=== PATIENT | male | born 1965 | race American Indian/Alaskan Native ===

== ENCOUNTER 2016-11-13 12:33 | Outpatient (CLI) | payer BC ==
[2016-11-13 13:08] LABS: Hematocrit 43.9 % (35.5-45.6); Hemoglobin 14.2 gm/dl (11.8-15.2); Mean Corpuscular HGB Conc 32 % (32-34); Mean Corpuscular Hemoglobin 26 pg (28-32); Mean Corpuscular Volume 81 fl (84-94); Platelet Count 205 K/mm3 (140-440); Red Blood Count 5.46 M/mm3 (3.65-5.03); Red Cell Distribution Width 16.1 % (13.2-15.2); White Blood Count 5.8 K/mm3 (4.5-11.0)
[2016-11-13 13:22] LABS: Alanine Aminotransferase 11 units/L (7-56); Albumin 4.5 g/dL (3.9-5); Albumin/Globulin Ratio 1.3 %; Alkaline Phosphatase 77 units/L (35-129); Anion Gap 18 mmol/L; BUN/Creatinine Ratio 15.55; Bilirubin,Total 0.4 mg/dL (0.1-1.2); Blood Urea Nitrogen 14 mg/dL (9-20); Calcium 9.1 mg/dL (8.4-10.2); Carbon Dioxide 24 mmol/L (22-30); Chloride 99.2 mmol/L (98-107); Cholesterol 176 mg/dL (50-199); Glucose 96 mg/dL (75-100); HDL Cholesterol 60 mg/dL (40-59); LDL Cholesterol,Direct 101 mg/dL (50-130); Potassium 3.8 mmol/L (3.6-5.0); Sodium 137 mmol/L (137-145); Total Protein 8.1 g/dL (6.3-8.2); Triglycerides 79 mg/dL (2-149)
== END 2016-11-13 12:34 | disposition home or self-care (01) ==
LOC: LAB 12:33
PROVIDERS: ATTEND Internal Medicine
DX: Z00.00 Encounter for general adult medical examination without abnormal findings (principal); E11.65 Type 2 diabetes mellitus with hyperglycemia; E78.00 Pure hypercholesterolemia, unspecified; E55.9 Vitamin D deficiency, unspecified; N40.1 Benign prostatic hyperplasia with lower urinary tract symptoms; R53.83 Other fatigue
CPT/HCPCS: 36415; 80053; 80061; 83036; 84153; 84443; 85027

== ENCOUNTER 2017-05-29 07:57 | Emergency (ER) | payer BC, OTHER ==
--- NOTE | 2017-05-29 08:35 | Emergency Department Report ---
ED General Adult HPI - General Chief complaint: Medical Clearance Stated complaint: NEEDLE STICK Time Seen by Provider: 05/29/17 08:24 Source: patient Mode of arrival: Ambulatory Limitations: No Limitations - History of Present Illness Initial comments: Needle stick -: This morning - Related Data Allergies Allergy/AdvReac Type Severity Reaction Status Date / Time No Known Allergies Allergy Verified 05/29/17 08:09 ED Review of Systems ROS: Stated complaint: NEEDLE STICK Other details as noted in HPI Constitutional: denies: fever ED Past Medical Hx - Past Medical History Previous Medical History?: Yes Hx Hypertension: Yes Hx Diabetes: Yes - Surgical History Past Surgical History?: No - Social History Smoking Status: Never Smoker Substance Use Type: None ED Physical Exam - General Limitations: No Limitations General appearance: alert - Extremities Exam Extremities exam: Present: other (left thumb needlestick no obvious bleeding) ED Course Vital Signs 05/29/17 08:09 Temperature 98.6 F Pulse Rate 74 Respiratory 18 Rate Blood Pressure 144/95 - Reevaluation(s) Reevaluation #1: 05/29/17 08:32 The other Patient rapid HIV test was negative. Patient does not want anti-HIV medications prophylaxis. Critical care attestation.: If time is entered above; I have spent that time in minutes in the direct care of this critically ill patient, excluding procedure time. ED Disposition Clinical Impression: Needle stick injury Disposition: DC-01 TO HOME OR SELFCARE Is pt being admited?: No Condition: Stable Referrals: PRIMARY CARE, [Primary Care Provider] - 3-5 Days
[2017-05-29 08:51] VITALS: BP 144/95
== END 2017-05-29 09:15 | disposition home or self-care (01) ==
LOC: ED 07:57
DX: S69.82XA Other specified injuries of left wrist, hand and finger(s), initial encounter (principal); I10 Essential (primary) hypertension; E11.9 Type 2 diabetes mellitus without complications; W46.0XXA Contact with hypodermic needle, initial encounter; Y93.89 Activity, other specified; Y92.89 Other specified places as the place of occurrence of the external cause; Y99.8 Other external cause status
CPT/HCPCS: 36415; 80074; 99283

== ENCOUNTER 2017-09-30 11:21 | Outpatient (CLI) | payer BC ==
[2017-09-30 12:01] LABS: Alanine Aminotransferase 10 units/L (7-56); Albumin 4.3 g/dL (3.9-5); Albumin/Globulin Ratio 1.1 %; Alkaline Phosphatase 68 units/L (35-129); Anion Gap 18 mmol/L; BUN/Creatinine Ratio 16; Blood Urea Nitrogen 14 mg/dL (9-20); Calcium 8.9 mg/dL (8.4-10.2); Carbon Dioxide 27 mmol/L (22-30); Chloride 99.2 mmol/L (98-107); Cholesterol 178 mg/dL (50-199); Glucose 105 mg/dL (75-100); HDL Cholesterol 55 mg/dL (40-59); LDL Cholesterol,Direct 105 mg/dL (50-130); Potassium 3.4 mmol/L (3.6-5.0); Sodium 141 mmol/L (137-145); Total Protein 8.1 g/dL (6.3-8.2); Triglycerides 92 mg/dL (2-149)
== END 2017-09-30 11:22 | disposition home or self-care (01) ==
LOC: LAB 11:21
PROVIDERS: ATTEND Internal Medicine
DX: E11.65 Type 2 diabetes mellitus with hyperglycemia (principal); E78.2 Mixed hyperlipidemia; R53.83 Other fatigue; I10 Essential (primary) hypertension
CPT/HCPCS: 36415; 80053; 80061; 83036

== ENCOUNTER 2018-03-01 05:38 | Emergency (ER) | payer BC ==
[2018-03-01] MEDS ORDERED: MOTRIN ONE (05:57)
[2018-03-01] MEDS ORDERED: FLEXERIL ONE (06:00)
[2018-03-01] MEDS ORDERED: NORCO 5/325 ONE (06:00)
[2018-03-01] MEDS ORDERED: NORCO 5/325 PO ONE (06:07)
[2018-03-01] MEDS ORDERED: FLEXERIL PO ONE (06:07)
[2018-03-01] MEDS ORDERED: MOTRIN PO ONE (06:07)
[2018-03-01] MEDS ORDERED: DECADRON ONE (06:49)
[2018-03-01] MEDS ORDERED: DILAUDID ONE (06:54)
[2018-03-01] MEDS ORDERED: ZOFRAN ODT ONE (06:54)
[2018-03-01] MEDS ORDERED: DILAUDID IM ONE (06:55)
[2018-03-01] MEDS ORDERED: DECADRON IM ONE (06:55)
[2018-03-01] MEDS ORDERED: ZOFRAN ODT PO ONE (06:55)
--- NOTE | 2018-03-01 06:55 | Emergency Department Report ---
ED Back Pain/Injury HPI - General Chief Complaint: Back Pain/Injury Stated Complaint: BACK ,RIGHT LEG PAIN Time Seen by Provider: 03/01/18 06:48 Source: patient, family Mode of arrival: Ambulatory Limitations: No Limitations - History of Present Illness Initial Comments: Patient is an employee here and started to have right lower back pain that radiated down his right leg. Patient had MRI 1.5 years ago and he is a patient of Dl Zavala M.D. who is orthopedic doctor. Patient said he has herniated disks in his lumbar area and also pinched nerve. He said he has constant lower back pain but he has been on his feet all night working in and he suddenly developed radiation of pain down his right leg. He said similar incident in the past. Pain is 8 out of 10. Patient to his right lower extremity feels numb and its constant. Denies any new injury. Denies any urinary burning frequency or urgency. Denies any abdominal pain or nausea or vomiting. The pressure is 164/102 and patient has a history of high blood pressure and diabetes. He also has history of chronic lower back pain with sciatica and surgical history of left shoulder and left knee surgery. Patient said he usually takes Ultram which helps. Patient is at work while flareup. His pain is worse with sitting. She denies any loss of bowel or bladder function. MD Complaint: back pain -: This morning Similar Symptoms Previously: Yes Place: work Radiation: buttocks, right leg Severity: severe Severity scale (0 -10): 8 Quality: aching (throbbing ), tingling Consistency: constant Improves With: immobilization Worsens With: sitting upright, walking Context: other (flare up at work) Associated Symptoms: difficulty walking. denies: confusion, weakness, chest pain, numbness, cough, difficulty urinating, diaphoresis, incontinence, fever/ chills, constipation, headaches, abdominal pain, loss of appetite, malaise, nausea/vomiting, rash, seizure, shortness of breath, syncope Treatments Prior to Arrival: other (none) - Related Data Previous Rx's Medication Instructions Recorded Last Taken Type Metaxalone [Skelaxin] 800 mg PO TID PRN #12 tablet 03/01/18 Unknown Rx predniSONE [Deltasone] 50 mg PO QDAY 3 Days #3 tab 03/01/18 Unknown Rx traMADol [Ultram 50 MG tab] 50 mg PO Q6HR PRN #20 tablet 03/01/18 Unknown Rx Allergies Allergy/AdvReac Type Severity Reaction Status Date / Time No Known Allergies Allergy Verified 05/29/17 08:09 ED Review of Systems ROS: Stated complaint: BACK ,RIGHT LEG PAIN Other details as noted in HPI Comment: All other systems reviewed and negative Constitutional: no symptoms reported Respiratory: no symptoms reported Cardiovascular: denies: chest pain, palpitations, dyspnea on exertion, edema, syncope, paroxysmal nocturnal dyspnea Gastrointestinal: denies: abdominal pain, nausea, vomiting Genitourinary: denies: dysuria, hematuria Musculoskeletal: back pain, arthralgia. denies: as per HPI, joint swelling, myalgia Skin: denies: rash Neurological: numbness, paresthesias, abnormal gait. denies: headache, weakness , confusion, vertigo ED Past Medical Hx - Past Medical History Medical history: diabetes, hypertension sciatic. Herniated disc and chronic back pain Surgical history: other (shoulder and left knee pain) Psychiatric history: no pertinent history Family history: no significant family history - Social History Smoking Status: Never Smoker Alcohol use: none Drug use: none ED Back Pain Physical Exam - Exam General: Vital signs noted. No distress. Alert and acting appropriately. This is a 52-year-old male well-nourished well-developed there is to be in mild distress from back pain Back/Abdomen: Yes Perilumbar Tenderness (spasm bilaterally), Yes Sacroiliac Tenderness (tender to palpate), Yes Straight Leg Raise Pain (positive right straight leg raise), No Abdominal Tenderness (nontender to palpate in all quadrants.), No Perithoracic Tenderness (nontender to palpate), No Flank Tenderness Neuro: Yes Normal Sensation, Yes Normal DTR's, Yes Normal Gait, No Motor Weakness ED Course Vital Signs 03/01/18 05:49 Temperature 98.3 F Pulse Rate 70 Respiratory 18 Rate Blood Pressure 164/102 O2 Sat by Pulse 98 Oximetry Vital Signs 03/01/18 03/01/18 05:49 07:04 Temperature 98.3 F Pulse Rate 70 68 Respiratory 18 17 Rate Blood Pressure 164/102 Blood Pressure 160/89 [Left] O2 Sat by Pulse 98 100 Oximetry - Reevaluation(s) Reevaluation #1: 03/01/18 07:30 Patient given [place] 5/325 mg 2 tablets and Flexeril 10 mg by mouth, Motrin 800 mg by mouth which did not relieve his pain. Reevaluation #2: 03/01/18 07:16 Patient given Dilaudid 1 mg IM, Zofran 8 mg ODT and Decadron 10 mg IM. He said his pain is better and blood pressure is better. ED Medical Decision Making - Medical Decision Making ED course: She reports acute flare up of chronic back pain while at work. Patient with lumbar radiculopathy with radiation down into right leg. He has spasms to his lower back. Patient given local photosensitive 5.325 mg 2 tablets by mouth and Motrin 800 mg by mouth along with Flexeril 10 mg by mouth in the emergency room which did not relieve his pain therefore he was given additional Dilaudid 1 mg IM, Decadron 10 mg IM, and Zofran 8 mg ODT which relieved his pain significantly. Patient is neurologically intact except abnormal gait due to back pain. Patient does have orthopedic doctor and I discussed with him that he needs to call and schedule appointment for follow-up visit. He voiced understanding. Patient is not having any bladder or bowel function abnormality. Discharge home with prescription for tramadol, prednisone 3 days and Skelaxin. Critical care attestation.: If time is entered above; I have spent that time in minutes in the direct care of this critically ill patient, excluding procedure time. ED Disposition Clinical Impression: Acute exacerbation of chronic low back pain, Lumbar radiculopathy, right, Elevated blood pressure reading with diagnosis of hypertension Disposition: DC-01 TO HOME OR SELFCARE Is pt being admited?: No Does the pt Need Aspirin: No Condition: Stable Instructions: Hypertension (ED), Back Pain (ED), Lumbar Radiculopathy (ED), Core Strengthening Exercises (GEN) Additional Instructions: Please do not drive or operate heavy machinery while taking Skelaxin and Ultram as this medication causes drowsiness Follow-up with your orthopedic doctor tomorrow Prescriptions: Metaxalone [Skelaxin] 800 mg PO TID PRN #12 tablet PRN Reason: spasm in Back predniSONE [Deltasone] 50 mg PO QDAY 3 Days #3 tab traMADol [Ultram 50 MG tab] 50 mg PO Q6HR PRN #20 tablet PRN Reason: Pain Referrals: ELLEN SOLIS MD [Primary Care Provider] - 03/03/18 DL ZAVALA MD [Staff Physician] - 03/02/18 Forms: Work/School Release Form(ED)
[2018-03-01 07:05] VITALS: BP 160/89
== END 2018-03-01 07:43 | disposition home or self-care (01) ==
LOC: ED 05:38
DX: M54.16 Radiculopathy, lumbar region (principal); M54.5 Low back pain; G89.29 Other chronic pain; I10 Essential (primary) hypertension; E11.9 Type 2 diabetes mellitus without complications
CPT/HCPCS: 96372; 99282; J1100; J1170; Q0162

== ENCOUNTER 2018-03-10 12:39 | Outpatient (CLI) | payer BC ==
--- NOTE | 2018-03-10 16:02 | Cat Scan Report ---
FINAL REPORT PROCEDURE: CT LOWER EXTREMITY RT WO CON TECHNIQUE: Computerized axial tomography of the LEFT hip was performed without contrast. HISTORY: RIGHT HIP PAIN COMPARISON: No prior studies are available for comparison. FINDINGS: There is partial sacralization of the right side the L5 vertebra, pseudo articulation which can be a cause of pain. There is mild arthritic change visualized in the superior aspect of the left SI joint. No fractures are identified. The small synovial herniation pit appears to be visualized in the superior lateral aspect of the right femoral neck. Bone island appears to be present in the inferior medial aspect of the right humeral head. Small subchondral cyst visualized in the superior lateral aspect of the acetabular roof on the right. Minimal marginal osteophytic spurring seen in the right and left hip joints consistent with mild osteoarthritis. Articular surfaces appear smooth. No acute fractures are seen. No evidence of avascular necrosis. Surrounding musculature is unremarkable. There is nonspecific diffuse prostate enlargement. Urinary bladder is unremarkable. Visualized portions of the appendix in the right lower quadrant are unremarkable. Minimal umbilical hernia containing adipose tissue is visualized. No herniated loops of bowel are seen. There is no ascites. IMPRESSION: Mild osteoarthritic changes seen in both hips., Small marginal osteophytic spurs are present. There is also a small subchondral cyst in the superior lateral aspect of the roof of the right acetabulum. Small synovial herniation pit seen in the right femoral neck adjacent to the femoral head. Partial sacralization right side of the L5 vertebral body as described which can be a cause of pain. Mild arthritic change seen in the left SI joint. No acute fractures or dislocation identified. There is nonspecific diffuse prostate enlargement.
== END 2018-03-10 12:40 | disposition home or self-care (01) ==
LOC: CT 12:39
PROVIDERS: ATTEND Internal Medicine
DX: M16.11 Unilateral primary osteoarthritis, right hip (principal); M43.27 Fusion of spine, lumbosacral region; M25.851 Other specified joint disorders, right hip; M76.9 Unspecified enthesopathy, lower limb, excluding foot; N40.0 Benign prostatic hyperplasia without lower urinary tract symptoms; K42.9 Umbilical hernia without obstruction or gangrene; I10 Essential (primary) hypertension; E11.9 Type 2 diabetes mellitus without complications

== ENCOUNTER 2018-07-21 10:54 | Outpatient (CLI) | payer BC ==
[2018-07-21 11:15] LABS: Hematocrit 44.9 % (35.5-45.6); Hemoglobin 14.7 gm/dl (11.8-15.2); Mean Corpuscular HGB Conc 33 % (32-34); Mean Corpuscular Hemoglobin 27 pg (28-32); Mean Corpuscular Volume 83 fl (84-94); Platelet Count 201 K/mm3 (140-440); Red Blood Count 5.43 M/mm3 (3.65-5.03); Red Cell Distribution Width 15.8 % (13.2-15.2)
[2018-07-21 11:45] LABS: Alanine Aminotransferase 9 units/L (7-56); Albumin 4.4 g/dL (3.9-5); BUN/Creatinine Ratio 13; Blood Urea Nitrogen 13 mg/dL (9-20); Calcium 9.2 mg/dL (8.4-10.2); Chol/HDL Ratio 3.28 %; HDL Cholesterol 53 mg/dL (40-59); Hemolysis Index 7; LDL Cholesterol,Direct 116 mg/dL (50-130)
== END 2018-07-21 10:55 | disposition home or self-care (01) ==
LOC: LAB 10:54
PROVIDERS: ATTEND Internal Medicine
DX: E11.65 Type 2 diabetes mellitus with hyperglycemia (principal); R53.83 Other fatigue; E78.2 Mixed hyperlipidemia; E55.9 Vitamin D deficiency, unspecified; N41.0 Acute prostatitis; I10 Essential (primary) hypertension
CPT/HCPCS: 36415; 80053; 80061; 82306; 83036; 84153; 84443; 85027

== ENCOUNTER 2019-03-09 09:50 | Outpatient (CLI) | payer BC ==
[2019-03-09 10:19] LABS: Hematocrit 45.6 % (35.5-45.6); Hemoglobin 15.1 gm/dl (11.8-15.2); Mean Corpuscular HGB Conc 33 % (32-34); Mean Corpuscular Volume 82 fl (84-94); Platelet Count 235 K/mm3 (140-440); Red Blood Count 5.58 M/mm3 (3.65-5.03); Red Cell Distribution Width 15.8 % (13.2-15.2)
[2019-03-09 10:35] LABS: Alanine Aminotransferase 10 units/L (7-56); Albumin 4.2 g/dL (3.9-5); BUN/Creatinine Ratio 11; Blood Urea Nitrogen 11 mg/dL (9-20); Calcium 8.8 mg/dL (8.4-10.2); Chol/HDL Ratio 2.96 %; HDL Cholesterol 56 mg/dL (40-59); Hemolysis Index 5; LDL Cholesterol,Direct 113 mg/dL (50-130)
== END 2019-03-09 09:51 | disposition home or self-care (01) ==
LOC: LAB 09:50
PROVIDERS: ATTEND Internal Medicine
DX: E11.65 Type 2 diabetes mellitus with hyperglycemia (principal); N40.1 Benign prostatic hyperplasia with lower urinary tract symptoms; R53.83 Other fatigue; E78.2 Mixed hyperlipidemia; I10 Essential (primary) hypertension
CPT/HCPCS: 36415; 80053; 80061; 83036; 84153; 84443; 85027

== ENCOUNTER 2019-09-27 09:40 | Outpatient (CLI) | payer BC ==
[2019-09-27 10:44] LABS: Hematocrit 42.6 % (35.5-45.6); Hemoglobin 13.8 gm/dl (11.8-15.2); Mean Corpuscular HGB Conc 32 % (32-34); Mean Corpuscular Volume 82 fl (84-94); Platelet Count 216 K/mm3 (140-440); Red Blood Count 5.23 M/mm3 (3.65-5.03); Red Cell Distribution Width 16.5 % (13.2-15.2)
[2019-09-27 11:09] LABS: Alanine Aminotransferase 13 units/L (7-56); Albumin 4.4 g/dL (3.9-5); BUN/Creatinine Ratio 12; Blood Urea Nitrogen 13 mg/dL (9-20); Calcium 9.2 mg/dL (8.4-10.2); Hemolysis Index 29
[2019-09-27 12:33] LABS: Microalbumin/Creatinine Ratio 6.1 ug/mg
== END 2019-09-27 09:41 | disposition home or self-care (01) ==
LOC: LAB 09:40
PROVIDERS: ATTEND Internal Medicine
DX: R53.83 Other fatigue (principal); E11.65 Type 2 diabetes mellitus with hyperglycemia; R80.0 Isolated proteinuria
CPT/HCPCS: 36415; 80053; 82043; 82164; 83036; 84443; 85027

== ENCOUNTER 2019-10-28 18:22 | Emergency (ER) | payer BC ==
--- NOTE | 2019-10-28 19:13 | Event Note ---
ED Screening Note Date of service: 10/28/19 Time: 19:10 ED Screening Note: Pt complains of chest pain, cough, and wheezing x 4 days +brown sputum ekg This initial assessment/diagnostic orders/clinical plan/treatment(s) is/are subject to change based on patients health status, clinical progression and re- assessment by fellow clinical providers in the ED. Further treatment and workup at subsequent clinical providers discretion. Patient/guardian urged not to elope from the ED as their condition may be serious if not clinically assessed and managed. Initial orders include: ekg CXR labs
--- NOTE | 2019-10-28 19:48 | XRay Report ---
CHEST 2 VIEWS INDICATION / CLINICAL INFORMATION: MAIN: cough, wheezing X4 DAYS. FINDINGS: Comparison radiograph from 06/20/2008. Cardiac mediastinal silhouette within normal limits. The lungs are clear. No pleural fluid or pneumothorax. No significant change. Signer Name: Miguel Macdonald MD Signed: 10/28/2019 7:44 PM Workstation Name: [id number]
[2019-10-28 20:16] LABS: Eosinophils % (Auto) 1.3 % (0.0-4.3); Hematocrit 41.8 % (35.5-45.6); Hemoglobin 13.9 gm/dl (11.8-15.2); Lymphocytes % (Auto) 29.7 % (13.4-35.0); Mean Corpuscular HGB Conc 33 % (32-34); Mean Corpuscular Volume 82 fl (84-94); Monocytes % (Auto) 11.7 % (0.0-7.3); Platelet Count 213 K/mm3 (140-440); Red Blood Count 5.11 M/mm3 (3.65-5.03); Red Cell Distribution Width 16.2 % (13.2-15.2)
[2019-10-28 20:17] LABS: Basophils % (Auto) 0.8 % (0.0-1.8); Eosinophils # (Auto) 0.1 K/mm3 (0.0-0.4); Lymphocytes # (Auto) 2.3 K/mm3 (1.2-5.4); Monocytes # (Auto) 0.9 K/mm3 (0.0-0.8)
[2019-10-28 20:18] LABS: Basophils # (Auto) 0.1 K/mm3 (0.0-0.1)
[2019-10-28] MEDS ORDERED: IPRATROPIUM/ALBUTEROL SULFATE 3 ML AMPUL.NEB IH ONE (20:30)
[2019-10-28 20:31] LABS: Alanine Aminotransferase 14 units/L (7-56); Albumin 4.1 g/dL (3.9-5); BUN/Creatinine Ratio 15; Blood Urea Nitrogen 16 mg/dL (9-20); Calcium 9.3 mg/dL (8.4-10.2); Hemolysis Index 2
[2019-10-28] MEDS ORDERED: ASPIRIN 325 MG TAB PO ONE (20:31)
[2019-10-28] MEDS ORDERED: methylPREDNISolone Sod Succinate 125 MG/2 ML INJ IV ONE (20:31)
[2019-10-28] MEDS ORDERED: SODIUM CHLORIDE 0.9% 1000 ML 1,000 ML IV ONE (20:32)
[2019-10-28] MEDS ORDERED: AMOXICILLIN/K CLAV 875/125MG TAB PO ONE (22:36)
--- NOTE | 2019-10-29 00:11 | Emergency Department Report ---
- General Chief Complaint: Chest Pain Stated Complaint: FLU SX/CHEST PAIN Time Seen by Provider: 10/28/19 19:10 Source: patient Mode of arrival: Ambulatory Limitations: No Limitations - History of Present Illness Initial Comments: Patient is a 54 yo AA male with a h/o HTN and NIDDM who presents to the ED with c/o acute onset persistent nasal and sinus congestion, frontal sinus pressure and headache, sore throat, pleuritic chest wall pain with intermittent wheezing, cough with thick yellowish-green phlegm, diffuse body aches and pains and frontal headache for the last 5 days. Patient also complains of subjective fever and chills with lack of appetite. Patient denies dizziness, syncope, chest pain, shortness of breath, abdominal pain, nausea, vomiting or diarrhea. MD Complaint: fever, cough, sore throat, rhinorrhea, nasal congestion, sinus pain, other (pleuritic chest wall pain; wheezing) -: Sudden, days(s) (5) Severity scale (0 -10): 8 Quality: sharp, aching Consistency: constant Improves With: nothing Worsens With: nothing Context: sick contacts Associated Symptoms: denies other symptoms, fever, chills, myalgias, headache, rhinorrhea, nasal congestion, sore throat, cough, chest pain (pleuritic), shortness of breath. denies: diaphoresis, stiff neck, abdominal pain, nausea, vomiting, diarrhea, dysuria, rash, confusion, right sweats, epistaxis, hoarseness, ear pain, other Treatments Prior to Arrival: Acetaminophen - Related Data Previous Rx's Medication Instructions Recorded Last Taken Type Metaxalone [Skelaxin] 800 mg PO TID PRN #12 tablet 03/01/18 Unknown Rx predniSONE [Deltasone] 50 mg PO QDAY 3 Days #3 tab 03/01/18 Unknown Rx traMADoL [Ultram 50 MG tab] 50 mg PO Q6HR PRN #20 tablet 03/01/18 Unknown Rx ALBUTEROL Inhaler (OR & NICU) 1 - 2 puff IH Q6H PRN #1 inh 10/29/19 Unknown Rx [ProAir HFA Inhaler] Amoxicillin/Potassium Clav 1 each PO Q12H #20 tablet 10/29/19 Unknown Rx [Augmentin 875-125 Tablet] Benzonatate [Tessalon Perles] 100 mg PO Q8HR #30 capsule 10/29/19 Unknown Rx Ibuprofen [Motrin] 800 mg PO Q8HR PRN #24 tablet 10/29/19 Unknown Rx methylPREDNISolone [Medrol 4MG 4 mg PO DAILY #21 tab.ds.pk 10/29/19 Unknown Rx DOSEPAK (21 tabs)] Allergies Allergy/AdvReac Type Severity Reaction Status Date / Time No Known Allergies Allergy Verified 05/29/17 08:09 ED Review of Systems ROS: Stated complaint: FLU SX/CHEST PAIN Other details as noted in HPI Constitutional: chills, fever, malaise Eyes: denies: eye pain, eye discharge, vision change ENT: throat pain, congestion. denies: ear pain Respiratory: cough, shortness of breath, wheezing Cardiovascular: chest pain (pleuritic). denies: palpitations Endocrine: no symptoms reported Gastrointestinal: denies: abdominal pain, nausea, vomiting, diarrhea Genitourinary: denies: urgency, dysuria Musculoskeletal: arthralgia, myalgia. denies: back pain, joint swelling Skin: denies: rash, lesions Neurological: headache. denies: weakness, paresthesias Psychiatric: denies: anxiety, depression Hematological/Lymphatic: denies: easy bleeding, easy bruising ED Past Medical Hx - Past Medical History Previous Medical History?: Yes Hx Hypertension: Yes Hx Diabetes: Yes Additional medical history: sciatic. Herniated disc and chronic back pain - Surgical History Past Surgical History?: Yes Additional Surgical History: left shoulder. left knee - Social History Smoking Status: Never Smoker Substance Use Type: None - Medications Home Medications: Home Medications Medication Instructions Recorded Confirmed Last Taken Type Metaxalone [Skelaxin] 800 mg PO TID PRN #12 tablet 03/01/18 Unknown Rx predniSONE [Deltasone] 50 mg PO QDAY 3 Days #3 tab 03/01/18 Unknown Rx traMADoL [Ultram 50 MG tab] 50 mg PO Q6HR PRN #20 tablet 03/01/18 Unknown Rx ALBUTEROL Inhaler (OR & NICU) 1 - 2 puff IH Q6H PRN #1 inh 10/29/19 Unknown Rx [ProAir HFA Inhaler] Amoxicillin/Potassium Clav 1 each PO Q12H #20 tablet 10/29/19 Unknown Rx [Augmentin 875-125 Tablet] Benzonatate [Tessalon Perles] 100 mg PO Q8HR #30 capsule 10/29/19 Unknown Rx Ibuprofen [Motrin] 800 mg PO Q8HR PRN #24 tablet 10/29/19 Unknown Rx methylPREDNISolone [Medrol 4MG 4 mg PO DAILY #21 tab.ds.pk 10/29/19 Unknown Rx DOSEPAK (21 tabs)] ED Physical Exam - General Limitations: No Limitations General appearance: alert, in no apparent distress - Head Head exam: Present: atraumatic, normocephalic, normal inspection - Eye Eye exam: Present: normal appearance, PERRL, EOMI Pupils: Present: normal accommodation - ENT ENT exam: Present: mucous membranes moist, TM's normal bilaterally, normal external ear exam, other (grossly congested nasal passages, erythematous oropharynx, frontal sinus tenderness) - Neck Neck exam: Present: normal inspection, full ROM, lymphadenopathy. Absent: tenderness - Respiratory Respiratory exam: Present: normal lung sounds bilaterally, wheezes (mildly diffuse coarse wheezes throughout), chest wall tenderness. Absent: respiratory distress, accessory muscle use, decreased breath sounds, prolonged expiratory - Cardiovascular Cardiovascular Exam: Present: normal rhythm, tachycardia, normal heart sounds. Absent: systolic murmur, diastolic murmur, rubs, gallop - GI/Abdominal GI/Abdominal exam: Present: soft, normal bowel sounds. Absent: tenderness, guarding, rebound, hyperactive bowel sounds, hypoactive bowel sounds, orga nomegaly - Extremities Exam Extremities exam: Present: normal inspection, full ROM, normal capillary refill - Back Exam Back exam: Present: normal inspection, full ROM. Absent: tenderness, CVA tenderness (R), CVA tenderness (L), muscle spasm, paraspinal tenderness - Neurological Exam Neurological exam: Present: alert, oriented X3, CN II-XII intact, normal gait, reflexes normal - Psychiatric Psychiatric exam: Present: normal affect, normal mood - Skin Skin exam: Present: warm, dry, intact, normal color. Absent: rash ED Course Vital Signs 10/28/19 10/28/19 19:10 21:18 Temperature 98.3 F Pulse Rate 106 H Pulse Rate [ 92 H Bilateral] Respiratory 20 Rate Respiratory 22 Rate [Bilateral ] Blood Pressure 159/100 O2 Sat by Pulse 96 Oximetry ED Medical Decision Making - Lab Data Result diagrams: 10/28/19 19:42 10/28/19 19:42 - Radiology Data Radiology results: report reviewed, image reviewed Chest x-ray shows no acute cardiopulmonary abnormalities or pneumonitis. - Medical Decision Making This is a 54-year-old male who presented to the ED with acute onset persistent diffuse body aches and pain, nasal and sinus congestion, frontal sinus pressure and headache, sore throat, persistent cough with yellowish green mucus, pleuritic chest wall pain for the last 5 days. In the ED, patient is alert and oriented 3 and is not in distress. EKG shows normal sinus rhythm with ventricular rate of [address] or T-wave abnormalities. Chest x-ray shows no acute cardio pulmonary abnormalities or pneumonitis. Lab test results were reviewed and are nonactionable including initial and repeat troponin levels. Patient was treated in the ED with DuoNeb, Solu-Medrol, aspirin and and Augmentin. Patient also received normal saline 1 L IV bolus 1. On reevaluat ion, patient felt better, wheezing resolved as well as body aches and pains. Patient was discharged home on medications and was advised to return plenty of fluids and follow-up with the primary care physician in 7-10 days for reevaluation or return to the ED immediately if symptoms get worse. - Differential Diagnosis pneumonia; sinusitis; URI; Strep pharyngitis; Flu; ACS Critical care attestation.: If time is entered above; I have spent that time in minutes in the direct care of this critically ill patient, excluding procedure time. ED Disposition Clinical Impression: Acute non-recurrent frontal sinusitis, Acute upper respiratory infection Acute bronchitis Qualifiers: Bronchitis organism: other organism Qualified Code(s): J20.8 - Acute bronchitis due to other specified organisms Disposition: DC-01 TO HOME OR SELFCARE Is pt being admited?: No Does the pt Need Aspirin: No Condition: Stable Instructions: Acute Bronchitis (ED), Acute Bacterial Rhinosinusitis (ED), Upper Respiratory Infection (ED) Additional Instructions: Take medication with food, drink plenty of fluids and follow-up with your primary care physician in 7-10 days for reevaluation. Prescriptions: Amoxicillin/Potassium Clav [Augmentin 875-125 Tablet] 1 each PO Q12H #20 tablet methylPREDNISolone [Medrol 4MG DOSEPAK (21 tabs)] 4 mg PO DAILY #21 tab.ds.pk Ibuprofen [Motrin] 800 mg PO Q8HR PRN #24 tablet PRN Reason: Pain , Severe (7-10) ALBUTEROL Inhaler (OR & NICU) [ProAir HFA Inhaler] 1 - 2 puff IH Q6H PRN #1 inh PRN Reason: Dyspnea Benzonatate [Tessalon Perles] 100 mg PO Q8HR #30 capsule Referrals: MJ KAYE MD [Staff Physician] - 7-10 days Forms: Work/School Release Form(ED) Time of Disposition: 00:14 Print Language: WELSH
[2019-10-29 01:40] VITALS: BP 153/95
== END 2019-10-29 00:44 | disposition home or self-care (01) ==
LOC: ED 18:22
DX: J06.9 Acute upper respiratory infection, unspecified (principal); J20.9 Acute bronchitis, unspecified; J01.10 Acute frontal sinusitis, unspecified; I10 Essential (primary) hypertension; E11.9 Type 2 diabetes mellitus without complications; Z98.890 Other specified postprocedural states; Z79.899 Other long term (current) drug therapy
CPT/HCPCS: 36415; 71046; 80053; 84484; 85025; 87116; 87400; 87430; 93005; 93010; 94640; 96374; 99284; J2930; J7030; 94644

== ENCOUNTER 2020-01-28 10:43 | Emergency (ER) | payer BC ==
--- NOTE | 2020-01-28 11:29 | XRay Report ---
CHEST 2 VIEWS INDICATION / CLINICAL INFORMATION: Chest congestion, dry throat/cough, recent travel. COMPARISON: 2 views of the chest from 10/28/2019. FINDINGS: SUPPORT DEVICES: None. HEART / MEDIASTINUM: No significant abnormality. LUNGS / PLEURA: No significant pulmonary or pleural abnormality. No pneumothorax. ADDITIONAL FINDINGS: No significant additional findings. IMPRESSION: 1. No acute abnormality of the chest. Signer Name: Wellington Martinez MD Signed: 01/28/2020 11:24 AM Workstation Name: [id number]
[2020-01-28] MEDS ORDERED: HYDROcodone/ACETAMINOPHEN 5-325 MG TAB PO ONE (11:49)
[2020-01-28] MEDS ORDERED: ASPIRIN 325 MG TAB PO ONE (11:49)
[2020-01-28 12:12] LABS: Basophils % (Auto) 0.7 % (0.0-1.8); Eosinophils # (Auto) 0.1 K/mm3 (0.0-0.4); Eosinophils % (Auto) 1.6 % (0.0-4.3); Hematocrit 41.6 % (35.5-45.6); Hemoglobin 13.9 gm/dl (11.8-15.2); Lymphocytes # (Auto) 2.5 K/mm3 (1.2-5.4); Lymphocytes % (Auto) 48.3 % (13.4-35.0); Mean Corpuscular HGB Conc 33 % (32-34); Mean Corpuscular Volume 80 fl (84-94); Monocytes # (Auto) 0.5 K/mm3 (0.0-0.8); Monocytes % (Auto) 9.8 % (0.0-7.3); Platelet Count 234 K/mm3 (140-440); Red Blood Count 5.19 M/mm3 (3.65-5.03); Red Cell Distribution Width 16.1 % (13.2-15.2)
--- NOTE | 2020-01-28 12:23 | Emergency Department Report ---
ED General Adult HPI - General Chief complaint: Upper Respiratory Infection Stated complaint: SOB/BOTH SHOULDERS HURT/LOWER BACK PAIN Time Seen by Provider: 01/28/20 11:12 Source: patient Mode of arrival: Ambulatory Limitations: No Limitations - History of Present Illness Initial comments: Patient is a 54-year-old male who presents emergency room with complaints of chest pain for 1 week. He has associated difficulty breathing, pleuritic chest pain, dry cough, occasionally notices bilateral lower extremity swelling. He states that when he wakes up in the morning his swelling has resolved but throughout the day with walking around the swelling increases. He states that he has recently traveled. He states that he went to [facility] from December 31-. He denies any fever, nausea, vomiting, diarrhea. He has a past medical history of hypertension and is on valsartan and amlodipine. He also has a history of diabetes and takes metformin. He states he last had a stress test approximately 15 years ago which she reports was normal. He denies any allergies to medications. He states he is a non-smoker and states that he rarely drinks. Severity scale (0 -10): 8 - Related Data Previous Rx's Medication Instructions Recorded Last Taken Type Metaxalone [Skelaxin] 800 mg PO TID PRN #12 tablet 03/01/18 Unknown Rx predniSONE [Deltasone] 50 mg PO QDAY 3 Days #3 tab 03/01/18 Unknown Rx traMADoL [Ultram 50 MG tab] 50 mg PO Q6HR PRN #20 tablet 03/01/18 Unknown Rx Albuterol INH(or & Nicu Only) 1 - 2 puff IH Q6H PRN #1 inh 10/29/19 Unknown Rx [ProAir HFA Inhaler] Amoxicillin/Potassium Clav 1 each PO Q12H #20 tablet 10/29/19 Unknown Rx [Augmentin 875-125 Tablet] Benzonatate [Tessalon Perles] 100 mg PO Q8HR #30 capsule 10/29/19 Unknown Rx Ibuprofen [Motrin] 800 mg PO Q8HR PRN #24 tablet 10/29/19 Unknown Rx methylPREDNISolone [Medrol 4MG 4 mg PO DAILY #21 tab.ds.pk 10/29/19 Unknown Rx DOSEPAK (21 tabs)] Albuterol Sulfate [Proventil Hfa] 6.7 gm IH TID PRN #1 hfa.aer.ad 01/28/20 Unknown Rx Azithromycin [Zithromax TAB] 250 mg PO QDAY 5 Days #6 tablet 01/28/20 Unknown Rx Benzonatate [Tessalon Perles] 100 mg PO Q8HR PRN #14 capsule 01/28/20 Unknown Rx Cyclobenzaprine [Flexeril] 10 mg PO Q8HR PRN #14 tablet 01/28/20 Unknown Rx Naproxen [EC-Naprosyn] 500 mg PO BID PRN #14 tablet.dr 01/28/20 Unknown Rx Allergies Allergy/AdvReac Type Severity Reaction Status Date / Time No Known Allergies Allergy Verified 05/29/17 08:09 ED Review of Systems ROS: Stated complaint: SOB/BOTH SHOULDERS HURT/LOWER BACK PAIN Other details as noted in HPI Comment: All other systems reviewed and negative ED Past Medical Hx - Past Medical History Previous Medical History?: Yes Hx Hypertension: Yes Hx Diabetes: Yes Additional medical history: sciatic. Herniated disc and chronic back pain - Surgical History Past Surgical History?: Yes Additional Surgical History: left shoulder. left knee - Social History Smoking Status: Never Smoker Substance Use Type: None - Medications Home Medications: Home Medications Medication Instructions Recorded Confirmed Last Taken Type Metaxalone [Skelaxin] 800 mg PO TID PRN #12 tablet 03/01/18 Unknown Rx predniSONE [Deltasone] 50 mg PO QDAY 3 Days #3 tab 03/01/18 Unknown Rx traMADoL [Ultram 50 MG tab] 50 mg PO Q6HR PRN #20 tablet 03/01/18 Unknown Rx Albuterol INH(or & Nicu Only) 1 - 2 puff IH Q6H PRN #1 inh 10/29/19 Unknown Rx [ProAir HFA Inhaler] Amoxicillin/Potassium Clav 1 each PO Q12H #20 tablet 10/29/19 Unknown Rx [Augmentin 875-125 Tablet] Benzonatate [Tessalon Perles] 100 mg PO Q8HR #30 capsule 10/29/19 Unknown Rx Ibuprofen [Motrin] 800 mg PO Q8HR PRN #24 tablet 10/29/19 Unknown Rx methylPREDNISolone [Medrol 4MG 4 mg PO DAILY #21 tab.ds.pk 10/29/19 Unknown Rx DOSEPAK (21 tabs)] Albuterol Sulfate [Proventil Hfa] 6.7 gm IH TID PRN #1 hfa.aer.ad 01/28/20 Unknown Rx Azithromycin [Zithromax TAB] 250 mg PO QDAY 5 Days #6 tablet 01/28/20 Unknown Rx Benzonatate [Tessalon Perles] 100 mg PO Q8HR PRN #14 capsule 01/28/20 Unknown Rx Cyclobenzaprine [Flexeril] 10 mg PO Q8HR PRN #14 tablet 01/28/20 Unknown Rx Naproxen [EC-Naprosyn] 500 mg PO BID PRN #14 tablet.dr 01/28/20 Unknown Rx ED Physical Exam - General Limitations: No Limitations General appearance: alert, in no apparent distress - Head Head exam: Present: atraumatic, normocephalic - Eye Eye exam: Present: normal appearance - ENT ENT exam: Present: mucous membranes moist - Respiratory Respiratory exam: Present: normal lung sounds bilaterally. Absent: respiratory distress, wheezes, rales, rhonchi, stridor, chest wall tenderness, accessory muscle use, decreased breath sounds, prolonged expiratory - Cardiovascular Cardiovascular Exam: Present: regular rate, normal rhythm, normal heart sounds. Absent: systolic murmur, diastolic murmur, rubs, gallop - Extremities Exam Extremities exam: Absent: pedal edema - Neurological Exam Neurological exam: Present: alert, oriented X3 - Psychiatric Psychiatric exam: Present: normal affect, normal mood - Skin Skin exam: Present: warm, dry, intact ED Course Vital Signs 01/28/20 01/28/20 10:56 15:11 Temperature 98.1 F Pulse Rate 82 80 Respiratory 18 16 Rate Blood Pressure 156/92 147/90 [Right] O2 Sat by Pulse 97 98 Oximetry ED Medical Decision Making - Lab Data Result diagrams: 01/28/20 12:04 01/28/20 11:57 Lab Results 01/28/20 01/28/20 01/28/20 Range/Units 11:57 11:57 12:04 WBC 5.1 (4.5-11.0) K/mm3 RBC 5.19 H (3.65-5.03) M/mm3 Hgb 13.9 (11.8-15.2) gm/dl Hct 41.6 (35.5-45.6) % MCV 80 L (84-94) fl MCH 27 L (28-32) pg MCHC 33 (32-34) % RDW 16.1 H (13.2-15.2) % Plt Count 234 (140-440) K/mm3 Lymph % (Auto) 48.3 H (13.4-35.0) % Amador % (Auto) 9.8 H (0.0-7.3) % Eos % (Auto) 1.6 (0.0-4.3) % Baso % (Auto) 0.7 (0.0-1.8) % Lymph # 2.5 (1.2-5.4) K/mm3 Amador # 0.5 (0.0-0.8) K/mm3 Eos # 0.1 (0.0-0.4) K/mm3 Baso # 0.0 (0.0-0.1) K/mm3 Seg Neutrophils % 39.6 L (40.0-70.0) % Seg Neutrophils # 2.0 (1.8-7.7) K/mm3 D-Dimer 162.78 (0-234) ng/mlDDU Sodium 138 (137-145) mmol/L Potassium 3.8 (3.6-5.0) mmol/L Chloride 98.5 (98-107) mmol/L Carbon Dioxide 24 (22-30) mmol/L Anion Gap 19 mmol/L BUN 12 (9-20) mg/dL Creatinine 1.0 (0.8-1.5) mg/dL Estimated GFR > 60 ml/min BUN/Creatinine Ratio 12 % Glucose 103 H (75-100) mg/dL Calcium 9.0 (8.4-10.2) mg/dL Total Bilirubin 0.60 (0.1-1.2) mg/dL AST 17 (5-40) units/L ALT 9 (7-56) units/L Alkaline Phosphatase 82 (35-129) units/L Troponin T < 0.010 (0.00-0.029) ng/mL NT-Pro-B Natriuret Pep 10.18 (0-900) pg/mL Total Protein 7.8 (6.3-8.2) g/dL Albumin 4.4 (3.9-5) g/dL Albumin/Globulin Ratio 1.3 % 04/05/20 Range/Units 14:10 WBC (4.5-11.0) K/mm3 RBC (3.65-5.03) M/mm3 Hgb (11.8-15.2) gm/dl Hct (35.5-45.6) % MCV (84-94) fl MCH (28-32) pg MCHC (32-34) % RDW (13.2-15.2) % Plt Count (140-440) K/mm3 Lymph % (Auto) (13.4-35.0) % Amador % (Auto) (0.0-7.3) % Eos % (Auto) (0.0-4.3) % Baso % (Auto) (0.0-1.8) % Lymph # (1.2-5.4) K/mm3 Amador # (0.0-0.8) K/mm3 Eos # (0.0-0.4) K/mm3 Baso # (0.0-0.1) K/mm3 Seg Neutrophils % (40.0-70.0) % Seg Neutrophils # (1.8-7.7) K/mm3 D-Dimer (0-234) ng/mlDDU Sodium (137-145) mmol/L Potassium (3.6-5.0) mmol/L Chloride (98-107) mmol/L Carbon Dioxide (22-30) mmol/L Anion Gap mmol/L BUN (9-20) mg/dL Creatinine (0.8-1.5) mg/dL Estimated GFR ml/min BUN/Creatinine Ratio % Glucose (75-100) mg/dL Calcium (8.4-10.2) mg/dL Total Bilirubin (0.1-1.2) mg/dL AST (5-40) units/L ALT (7-56) units/L Alkaline Phosphatase (35-129) units/L Troponin T < 0.010 (0.00-0.029) ng/mL NT-Pro-B Natriuret Pep (0-900) pg/mL Total Protein (6.3-8.2) g/dL Albumin (3.9-5) g/dL Albumin/Globulin Ratio % - EKG Data EKG shows normal: sinus rhythm, intervals, QRS complexes, ST-T waves Rate: normal - EKG Data 01/28/20 16:49 LAD No STEMI - Radiology Data Radiology results: report reviewed CHEST 2 VIEWS INDICATION / CLINICAL INFORMATION: Chest congestion, dry throat/cough, recent travel. COMPARISON: 2 views of the chest from 10/28/2019. FINDINGS: SUPPORT DEVICES: None. HEART / MEDIASTINUM: No significant abnormality. LUNGS / PLEURA: No significant pulmonary or pleural abnormality. No pneumothorax. ADDITIONAL FINDINGS: No significant additional findings. IMPRESSION: 1. No acute abnormality of the chest. Signer Name: Wellington Martinez MD Signed: 01/28/2020 11:24 AM Workstation Name: [email or web address] Transcribed By: CLAYTON Dictated By: Wellington Martinez MD Electronically Authenticated By: Wellington Martinez MD Signed Date/Time: 01/28/20 1124 DD/ 1123 TD/TT: - Medical Decision Making Patient is a 54-year-old male who presents emergency room with complaints of chest pain for 1 week. He has associated difficulty breathing, pleuritic chest pain, dry cough, occasionally notices bilateral lower extremity swelling. He states that when he wakes up in the morning his swelling has resolved but throughout the day with walking around the swelling increases. He states that he has recently traveled. He states that he went to [facility] from December 31-. He denies any fever, nausea, vomiting, diarrhea. He has a past medical history of hypertension and is on valsartan and amlodipine. He also has a history of diabetes and takes metformin. He states he last had a stress test approximately 15 years ago which she reports was normal. He denies any allergies to medications. He states he is a non-smoker and states that he rarely drinks. Vitals are stable, normal oxygen saturation and heart rate. Labs are stable. D-dimer is negative. Troponin is negative x2. BNP is normal. EKG with left axis deviation, otherwise normal, no STEMI. Chest x-ray with no acute process. Lungs are clear on exam bilaterally. Wells score for PE is 0, PE very unlikely. Patient states that he has right shoulder pain, he states that he previously had to have surgery on his left shoulder and believes now that his right shoulder is giving him issues, he has pain with full flexion, he denies any fall or injury. Patient did not drive to the emergency department and given aspirin and Mccammon and pain improved. Patient will be treated for bronchitis with azithromycin, albuterol inhaler, Tessalon Perles. Patient given NSAID and muscle relaxer for his shoulder pain. Patient's heart score is 3, NICHOL score is 1, low risk for cardiac event, patient placed on chest pain pathway and his face sheet was faxed over to [facility] by private secretary for urgent cardiology follow-up and stress test. Discussed all results with patient. advised pt Please take medication as prescribed. Do not drive or operate heavy machinery while taking muscle relaxer due to potential for drowsiness. Please follow-up with a primary care doctor. Please follow-up with a senior ui web developer, I have faxed your information over to [facility]. Please follow-up with an orthopedic doctor. Return to the emergency room immediately for any new or worsening symptoms. discussed self quarantine with pt, pt given work excuse, discussed hand washing, and to use a mask, and sneeze/cough into napkin and throw away and wash hands. discussed in detail strict return precautions. Critical care attestation.: If time is entered above; I have spent that time in minutes in the direct care of this critically ill patient, excluding procedure time. ED Disposition Clinical Impression: SOB (shortness of breath), Dry cough Chest pain Qualifiers: Chest pain type: unspecified Qualified Code(s): R07.9 - Chest pain, unspecified Right shoulder pain Qualifiers: Chronicity: acute Qualified Code(s): M25.511 - Pain in right shoulder Disposition: DC-01 TO HOME OR SELFCARE Is pt being admited?: No Does the pt Need Aspirin: No Condition: Stable Instructions: Acute Bronchitis (ED), Dyspnea (ED), Arthralgia (ED) Additional Instructions: Please take medication as prescribed. Do not drive or operate heavy machinery while taking muscle relaxer due to potential for drowsiness. Please follow-up with a primary care doctor. Please follow-up with a senior ui web developer, I have faxed your information over to [facility]. Please follow-up with an orthopedic doctor. Return to the emergency room immediately for any new or worsening symptoms. Prescriptions: Naproxen [EC-Naprosyn] 500 mg PO BID PRN #14 tablet.dr TORREZ Reason: pain Cyclobenzaprine [Flexeril] 10 mg PO Q8HR PRN #14 tablet PRN Reason: Muscle Spasm Albuterol Sulfate [Proventil Hfa] 6.7 gm IH TID PRN #1 hfa.aer.ad PRN Reason: Shortness Of Breath Benzonatate [Tessalon Perles] 100 mg PO Q8HR PRN #14 capsule PRN Reason: cough Azithromycin [Zithromax TAB] 250 mg PO QDAY 5 Days #6 tablet Referrals: [facility] [Provider Group] - 2-3 Days ELLEN SOLIS MD [Primary Care Provider] - 2-3 Days AILYN MARTINEZ MD [Staff Physician] - 2-3 Days Forms: Work/School Release Form(ED) Time of Disposition: 14:51 Print Language: JAPANESE
[2020-01-28 12:37] LABS: Alanine Aminotransferase 9 units/L (7-56); Albumin 4.4 g/dL (3.9-5); BUN/Creatinine Ratio 12; Blood Urea Nitrogen 12 mg/dL (9-20); Hemolysis Index 7
[2020-01-28 15:12] VITALS: BP 147/90
== END 2020-01-28 15:12 | disposition home or self-care (01) ==
LOC: ED 10:43
DX: R06.02 Shortness of breath (principal); R07.89 Other chest pain; M25.511 Pain in right shoulder; R05 Cough; I10 Essential (primary) hypertension; E11.9 Type 2 diabetes mellitus without complications; Z79.899 Other long term (current) drug therapy
CPT/HCPCS: 36415; 71046; 80053; 83880; 84484; 85025; 85379; 93005; 93010

== ENCOUNTER 2020-10-02 22:17 | Emergency (ER) | payer BC ==
[2020-10-02] MEDS ORDERED: ACETAMINOPHEN 325 MG TAB PO ONE (23:05)
[2020-10-02] MEDS ORDERED: ACETAMINOPHEN 325 MG TAB ONE (23:09)
[2020-10-02] MEDS ORDERED: amLODIPine 5 MG TAB PO ONE (23:29)
--- NOTE | 2020-10-02 23:29 | Emergency Department Report ---
ED General Adult HPI - General Chief complaint: High BP Stated complaint: HIGH BP PUI?: No Time Seen by Provider: 10/02/20 23:24 Source: patient Mode of arrival: Ambulatory Limitations: No Limitations - History of Present Illness Initial comments: Patient is a 55-year-old male that presents emergency room with complaints of elevated blood pressure and headache. Patient states he has been monitoring his blood pressure in a centimeter blood pressure from 1 70-1 84 systolic and 92-105 diastolic. Patient states he is currently taking hydrochlorothiazide 25 mg daily, hydralazine 100 mg 3 times a day, valsartan 320 daily. Patient states his headache is better with rest and worse with exertion and high blood pressure. Patient states he just took some Tylenol and his headache has resolved. Patient denies blurry vision. Patient denies neck stiffness. Patient denies chest pain or shortness of breath. Patient states he is compliant with his medication. Patient states he checks his blood pressure frequently at home. Patient brought his labs that he had 3 days ago. Patient's chemistry was normal. Patient's blood count was normal. Patient's A1c was 6.5. Patient is compliant with his diabetes medications, Metformin. Patient denies recent travel. Patient denies recent international travel. Patient denies exposure to the novel coronavirus. Patient denies sick contacts. Patient denies fever and chills. Patient denies cough. Patient denies diarrhea. Patient denies coming in contact with anybody with symptoms of the novel coronavirus. -: Sudden Location: head Severity scale (0 -10): 0 Quality: aching Consistency: now resolved Improves with: medication, rest Worsens with: other Associated Symptoms: headaches. denies: confusion, chest pain, cough, diaphoresis, fever/chills, loss of appetite, malaise, nausea/vomiting, rash, seizure, shortness of breath, syncope, weakness - Related Data Previous Rx's Medication Instructions Recorded Last Taken Type predniSONE [Deltasone] 50 mg PO QDAY 3 Days #3 tab 03/01/18 Unknown Rx Albuterol Mdi (or & Nicu Only) 1 - 2 puff IH Q6H PRN #1 inh 10/29/19 Unknown Rx [ProAir HFA Inhaler] Amoxicillin/Potassium Clav 1 each PO Q12H #20 tablet 10/29/19 Unknown Rx [Augmentin 875-125 Tablet] Benzonatate [Tessalon Perles] 100 mg PO Q8HR #30 capsule 10/29/19 Unknown Rx Ibuprofen [Motrin] 800 mg PO Q8HR PRN #24 tablet 10/29/19 Unknown Rx methylPREDNISolone [Medrol 4MG 4 mg PO DAILY #21 tab.ds.pk 10/29/19 Unknown Rx DOSEPAK (21 tabs)] Albuterol Sulfate [Proventil Hfa] 6.7 gm IH TID PRN #1 hfa.aer.ad 01/28/20 Unknown Rx Azithromycin [Zithromax TAB] 250 mg PO QDAY 5 Days #6 tablet 01/28/20 Unknown Rx Benzonatate [Tessalon Perles] 100 mg PO Q8HR PRN #14 capsule 01/28/20 Unknown Rx Cyclobenzaprine [Flexeril] 10 mg PO Q8HR PRN #14 tablet 01/28/20 Unknown Rx Naproxen [EC-Naprosyn] 500 mg PO BID PRN #14 tablet.dr 01/28/20 Unknown Rx Diclofenac Potassium 50 mg PO Q8H PRN #30 tablet 07/04/20 Unknown Rx Metaxalone [Skelaxin] 800 mg PO Q8H PRN #30 tablet 07/04/20 Unknown Rx traMADoL [Ultram 50 MG tab] 50 mg PO Q6HR PRN #12 tablet 07/04/20 Unknown Rx amLODIPine 5 mg PO DAILY 30 Days #30 tablet 10/02/20 Unknown Rx Allergies Allergy/AdvReac Type Severity Reaction Status Date / Time No Known Allergies Allergy Verified 05/29/17 08:09 ED Review of Systems ROS: Stated complaint: HIGH BP Other details as noted in HPI Constitutional: denies: chills, fever Eyes: denies: eye pain, eye discharge, vision change ENT: denies: ear pain, throat pain Respiratory: denies: cough, shortness of breath, wheezing Cardiovascular: denies: chest pain, palpitations Endocrine: no symptoms reported Gastrointestinal: denies: abdominal pain, nausea, diarrhea Genitourinary: denies: urgency, dysuria Musculoskeletal: denies: back pain, joint swelling, arthralgia Skin: denies: rash, lesions Neurological: as per HPI, headache. denies: weakness, paresthesias Psychiatric: denies: anxiety, depression Hematological/Lymphatic: denies: easy bleeding, easy bruising ED Past Medical Hx - Past Medical History Previous Medical History?: Yes Hx Hypertension: Yes Hx Diabetes: Yes Additional medical history: sciatic. Herniated disc and chronic back pain - Surgical History Past Surgical History?: Yes Additional Surgical History: left shoulder. left knee - Family History Family history: no significant - Social History Smoking Status: Never Smoker Substance Use Type: Alcohol - Medications Home Medications: Home Medications Medication Instructions Recorded Confirmed Last Taken Type predniSONE [Deltasone] 50 mg PO QDAY 3 Days #3 tab 03/01/18 Unknown Rx Albuterol Mdi (or & Nicu Only) 1 - 2 puff IH Q6H PRN #1 inh 10/29/19 Unknown Rx [ProAir HFA Inhaler] Amoxicillin/Potassium Clav 1 each PO Q12H #20 tablet 10/29/19 Unknown Rx [Augmentin 875-125 Tablet] Benzonatate [Tessalon Perles] 100 mg PO Q8HR #30 capsule 10/29/19 Unknown Rx Ibuprofen [Motrin] 800 mg PO Q8HR PRN #24 tablet 10/29/19 Unknown Rx methylPREDNISolone [Medrol 4MG 4 mg PO DAILY #21 tab.ds.pk 10/29/19 Unknown Rx DOSEPAK (21 tabs)] Albuterol Sulfate [Proventil Hfa] 6.7 gm IH TID PRN #1 hfa.aer.ad 01/28/20 Unknown Rx Azithromycin [Zithromax TAB] 250 mg PO QDAY 5 Days #6 tablet 01/28/20 Unknown Rx Benzonatate [Tessalon Perles] 100 mg PO Q8HR PRN #14 capsule 01/28/20 Unknown Rx Cyclobenzaprine [Flexeril] 10 mg PO Q8HR PRN #14 tablet 01/28/20 Unknown Rx Naproxen [EC-Naprosyn] 500 mg PO BID PRN #14 tablet.dr 01/28/20 Unknown Rx Diclofenac Potassium 50 mg PO Q8H PRN #30 tablet 07/04/20 Unknown Rx Metaxalone [Skelaxin] 800 mg PO Q8H PRN #30 tablet 07/04/20 Unknown Rx traMADoL [Ultram 50 MG tab] 50 mg PO Q6HR PRN #12 tablet 07/04/20 Unknown Rx amLODIPine 5 mg PO DAILY 30 Days #30 tablet 10/02/20 Unknown Rx ED Physical Exam - General Limitations: No Limitations General appearance: alert, in no apparent distress - Head Head exam: Present: atraumatic, normocephalic - Eye Eye exam: Present: normal appearance, PERRL Pupils: Present: normal accommodation - ENT ENT exam: Present: mucous membranes moist - Neck Neck exam: Present: normal inspection - Respiratory Respiratory exam: Present: normal lung sounds bilaterally. Absent: respiratory distress - Cardiovascular Cardiovascular Exam: Present: regular rate, normal rhythm. Absent: systolic m urmur, diastolic murmur, rubs, gallop - GI/Abdominal GI/Abdominal exam: Present: soft, normal bowel sounds - Rectal Rectal exam: Present: deferred - Extremities Exam Extremities exam: Present: normal inspection - Back Exam Back exam: Present: normal inspection - Neurological Exam Neurological exam: Present: alert, oriented X3 - Psychiatric Psychiatric exam: Present: normal affect, normal mood - Skin Skin exam: Present: warm, dry, intact, normal color. Absent: rash ED Course Vital Signs 10/02/20 10/03/20 10/03/20 23:10 00:03 00:05 Pulse Rate 93 H 91 H Respiratory 18 Rate Blood Pressure 169/96 Blood Pressure 169/96 [Left] O2 Sat by Pulse 99 Oximetry 10/03/20 10/03/20 00:10 01:04 Pulse Rate Respiratory 18 Rate Blood Pressure Blood Pressure 162/99 [Left] O2 Sat by Pulse Oximetry - Reevaluation(s) Reevaluation #1: Patient will be given 5 mg of Norvasc and patient will be discharged home. 10/02/20 23:55 Reevaluation #2: Patient's blood pressure has improved. Patient states he is feeling better. Patient states his headache has resolved. I discussed all results and clinical findings with patient. I discussed plan of care with patient. Patient agrees with plan of care. Patient is stable for discharge. Patient will be discharged home. Patient given discharge instructions. Patient voiced understanding of discharge instructions. 10/03/20 00:48 ED Medical Decision Making - Medical Decision Making Patient is a 55-year-old male that presents emergency room for management of his blood pressure and headache. Patient's blood pressure has been high at home and the patient found to have high blood pressure. Patient's given 5 mg of Norvasc and his blood pressure improved. Patient took Tylenol prior to being seen by me and his headache resolved. Patient stable for discharge. Patient not require further emergency medical services. Patient given discharge inst ructions. Patient discharged home. - Differential Diagnosis Hypertension, uncontrolled blood pressure, headache. Critical care attestation.: If time is entered above; I have spent that time in minutes in the direct care of this critically ill patient, excluding procedure time. ED Disposition Clinical Impression: Hypertension Qualifiers: Hypertension type: essential hypertension Qualified Code(s): I10 - Essential (primary) hypertension Headache Qualifiers: Headache type: unspecified Headache chronicity pattern: acute headache Intractability: not intractable Qualified Code(s): R51.9 - Headache, unspecified Disposition: DC- TO HOME OR SELFCARE Is pt being admited?: No Does the pt Need Aspirin: No Condition: Stable Instructions: How to Take Your Blood Pressure, Form - Blood Pressure Record Sheet, Hypertension, Adult, [id number], Preventing Hypertension, Hypertension (ED) Additional Instructions: Patient to follow-up with primary care in 2 to 3 days. Patient to keep a blood pressure log. Patient take blood pressure log to all follow-up appointments. Patient to continue all blood pressure and other medications. Patient to rest. Patient to increase water. Patient to eat a low-salt, heart healthy diet. Patient to take Tylenol as needed for pain. Patient to take meds as directed. Patient to avoid NSAIDs. Patient to return to the ER if condition worsens, changes or new symptoms arise. Prescriptions: amLODIPine 5 mg PO DAILY 30 Days #30 tablet Referrals: PRIMARY CARE [Primary Care Provider] - 3-5 Days Time of Disposition: 00:49
[2020-10-03 01:04] VITALS: BP 162/99
== END 2020-10-03 01:04 | disposition home or self-care (01) ==
LOC: ED 22:17
DX: I10 Essential (primary) hypertension (principal); R51.9 Headache, unspecified; E11.9 Type 2 diabetes mellitus without complications; Z98.890 Other specified postprocedural states; Z79.899 Other long term (current) drug therapy
CPT/HCPCS: 99282

== ENCOUNTER 2020-11-14 06:52 | Outpatient (CLI) | payer BC ==
--- NOTE | 2020-11-15 13:02 | Treadmill Report ---
THALLIUM STRESS TEST LEFT VENTRICLE: Left ventricular chamber size is within normal spread. Perfusion study demonstrates homogeneous uptake of the tracer in all segments. There is normal apical thinning, mild diaphragmatic attenuation artifact. No significant perfusion defects identified. Gated analysis demonstrates normal left ventricular systolic function, ejection fraction 56%. CONCLUSION: Normal myocardial perfusion study. JOB# [id number] CA/NTS
== END 2020-11-14 06:53 | disposition home or self-care (01) ==
LOC: ECHO 06:52
PROVIDERS: ATTEND Specialist
DX: R94.31 Abnormal electrocardiogram [ECG] [EKG] (principal)
CPT/HCPCS: 78452; 93017; 93306; A9502

== ENCOUNTER 2021-04-18 09:16 | Outpatient (CLI) | payer BC ==
[2021-04-18 09:39] LABS: Hematocrit 40.5 % (35.5-45.6); Hemoglobin 13.5 gm/dl (11.8-15.2); Mean Corpuscular HGB Conc 33 % (32-34); Mean Corpuscular Volume 80 fl (84-94); Platelet Count 206 K/mm3 (140-440); Red Blood Count 5.03 M/mm3 (3.65-5.03); Red Cell Distribution Width 16.6 % (13.2-15.2)
[2021-04-18 10:09] LABS: Alanine Aminotransferase 11 units/L (7-56); Albumin 4.5 g/dL (3.9-5); BUN/Creatinine Ratio 13; Blood Urea Nitrogen 15 mg/dL (9-20); Calcium 9.1 mg/dL (8.4-10.2); Chol/HDL Ratio 2.77 %; HDL Cholesterol 58 mg/dL (40-59); Hemolysis Index 18; LDL Cholesterol,Direct 101 mg/dL (50-130)
== END 2021-04-18 09:17 | disposition home or self-care (01) ==
LOC: LAB 09:16
PROVIDERS: ATTEND Internal Medicine
DX: Z00.00 Encounter for general adult medical examination without abnormal findings (principal); R53.83 Other fatigue; E78.2 Mixed hyperlipidemia; E11.65 Type 2 diabetes mellitus with hyperglycemia
CPT/HCPCS: 36415; 80053; 80061; 83036; 84443; 85027

== ENCOUNTER → 2021-05-01 | Outpatient (CLI) | payer BC | END | disposition home or self-care (01) | LOC: SLR 11:00 | PROVIDERS: ATTEND Internal Medicine | DX: G47.30 Sleep apnea, unspecified (principal) | CPT/HCPCS: 95810 ==

== ENCOUNTER → 2021-05-27 | Outpatient (CLI) | payer BC | END | disposition home or self-care (01) | LOC: SLR 11:00 | PROVIDERS: ATTEND Internal Medicine | DX: G47.33 Obstructive sleep apnea (adult) (pediatric) (principal) | CPT/HCPCS: 95811 ==

== ENCOUNTER 2021-08-01 03:34 | Emergency (ER) | payer BC ==
[2021-08-01 03:48] VITALS: BP 173/99
[2021-08-01] MEDS ORDERED: KETOROLAC 60 MG/2 ML INJ IM ONE (04:03)
[2021-08-01] MEDS ORDERED: ACETAMINOPHEN 500 MG TAB PO ONE (04:03)
--- NOTE | 2021-08-01 04:09 | Emergency Department Report ---
ED Back Pain/Injury HPI - General Chief Complaint: Back Pain/Injury Stated Complaint: LOWER BACK PAIN Source: patient Limitations: No Limitations - History of Present Illness Initial Comments: Patient is a 56-year-old -[place] male with a history of hypertension, zlt-frjrwpe-[id number] diabetes and chronic low back pain due to herniated lumbar disc disease who presents to the ED with complaint of acute exacerbation of his chronic low back pain after twisting and bending at work about 1 hour ago. Patient states that the pain is constant, persistent and worse with ambulation or any movement. Patient states that he is unable perform any active range of motion like twisting or bending because of worsening pain. Patient denies fall, traumatic injury, saddle paresthesia, numbness and tingling or weakness of lower extremities bilaterally, chest pain, shortness of breath, hematuria, testicular pain, urinary retention or bowel incontinence. MD Complaint: back pain (lower), back injury (twisted lower back at work) -: Sudden, hour(s) (1) Similar Symptoms Previously: Yes (chronic low back pain ) Place: work Radiation: none Severity: severe Severity scale (0 -10): 8 Quality: sharp, aching Consistency: constant Improves With: none Worsens With: movement, walking Context: turning/twisting, bending Associated Symptoms: denies other symptoms, difficulty walking. denies: confusion, weakness, chest pain, numbness, cough, difficulty urinating, diaphoresis, incontinence, constipation, headaches, abdominal pain, loss of appetite, nausea/vomiting, rash, seizure, shortness of breath, syncope, other - Related Data Previous Rx's Medication Instructions Recorded Last Taken Type predniSONE [Deltasone] 50 mg PO QDAY 3 Days #3 tab 03/01/18 Unknown Rx Albuterol Mdi (or & Nicu Only) 1 - 2 puff IH Q6H PRN #1 inh 10/29/19 Unknown Rx [ProAir HFA Inhaler] Amoxicillin/Potassium Clav 1 each PO Q12H #20 tablet 10/29/19 Unknown Rx [Augmentin 875-125 Tablet] Benzonatate [Tessalon Perles] 100 mg PO Q8HR #30 capsule 10/29/19 Unknown Rx Ibuprofen [Motrin] 800 mg PO Q8HR PRN #24 tablet 10/29/19 Unknown Rx methylPREDNISolone [Medrol 4MG 4 mg PO DAILY #21 tab.ds.pk 10/29/19 Unknown Rx DOSEPAK (21 tabs)] Albuterol Sulfate [Proventil Hfa] 6.7 gm IH TID PRN #1 hfa.aer.ad 01/28/20 Unknown Rx Azithromycin [Zithromax TAB] 250 mg PO QDAY 5 Days #6 tablet 01/28/20 Unknown Rx Benzonatate [Tessalon Perles] 100 mg PO Q8HR PRN #14 capsule 01/28/20 Unknown Rx Cyclobenzaprine [Flexeril] 10 mg PO Q8HR PRN #14 tablet 01/28/20 Unknown Rx Diclofenac Potassium 50 mg PO Q8H PRN #30 tablet 07/04/20 Unknown Rx amLODIPine 5 mg PO DAILY 30 Days #30 tablet 10/02/20 Unknown Rx Metaxalone [Skelaxin] 800 mg PO Q8H PRN #30 tablet 08/01/21 Unknown Rx Naproxen [EC-Naprosyn] 500 mg PO Q12H PRN #30 tablet. 08/01/21 Unknown Rx traMADoL [Ultram 50 MG tab] 50 mg PO Q6HR PRN #12 tablet 08/01/21 Unknown Rx Allergies Allergy/AdvReac Type Severity Reaction Status Date / Time No Known Allergies Allergy Verified 08/01/21 03:56 ED Review of Systems ROS: Stated complaint: LOWER BACK PAIN Other details as noted in HPI Constitutional: denies: chills, fever Eyes: denies: eye pain, eye discharge, vision change ENT: denies: ear pain, throat pain Respiratory: denies: cough, shortness of breath, wheezing Cardiovascular: denies: chest pain, palpitations Endocrine: no symptoms reported Gastrointestinal: denies: abdominal pain, nausea, diarrhea Genitourinary: denies: urgency, dysuria Musculoskeletal: back pain (lower back pain). denies: joint swelling, arthralgia Skin: denies: rash, lesions Neurological: denies: headache, weakness, paresthesias Psychiatric: denies: anxiety, depression Hematological/Lymphatic: denies: easy bleeding, easy bruising ED Past Medical Hx - Past Medical History Previous Medical History?: Yes Hx Hypertension: Yes Hx Diabetes: Yes Additional medical history: sciatic. Herniated disc and chronic back pain - Surgical History Past Surgical History?: No Additional Surgical History: left shoulder. left knee - Social History Smoking Status: Never Smoker - Medications Home Medications: Home Medications Medication Instructions Recorded Confirmed Last Taken Type predniSONE [Deltasone] 50 mg PO QDAY 3 Days #3 tab 03/01/18 Unknown Rx Albuterol Mdi (or & Nicu Only) 1 - 2 puff IH Q6H PRN #1 inh 10/29/19 Unknown Rx [ProAir HFA Inhaler] Amoxicillin/Potassium Clav 1 each PO Q12H #20 tablet 10/29/19 Unknown Rx [Augmentin 875-125 Tablet] Benzonatate [Tessalon Perles] 100 mg PO Q8HR #30 capsule 10/29/19 Unknown Rx Ibuprofen [Motrin] 800 mg PO Q8HR PRN #24 tablet 10/29/19 Unknown Rx methylPREDNISolone [Medrol 4MG 4 mg PO DAILY #21 tab.ds.pk 10/29/19 Unknown Rx DOSEPAK (21 tabs)] Albuterol Sulfate [Proventil Hfa] 6.7 gm IH TID PRN #1 hfa.aer.ad 01/28/20 Unknown Rx Azithromycin [Zithromax TAB] 250 mg PO QDAY 5 Days #6 tablet 01/28/20 Unknown Rx Benzonatate [Tessalon Perles] 100 mg PO Q8HR PRN #14 capsule 01/28/20 Unknown Rx Cyclobenzaprine [Flexeril] 10 mg PO Q8HR PRN #14 tablet 01/28/20 Unknown Rx Diclofenac Potassium 50 mg PO Q8H PRN #30 tablet 07/04/20 Unknown Rx amLODIPine 5 mg PO DAILY 30 Days #30 tablet 10/02/20 Unknown Rx Metaxalone [Skelaxin] 800 mg PO Q8H PRN #30 tablet 08/01/21 Unknown Rx Naproxen [EC-Naprosyn] 500 mg PO Q12H PRN #30 tablet.dr 08/01/21 Unknown Rx traMADoL [Ultram 50 MG tab] 50 mg PO Q6HR PRN #12 tablet 08/01/21 Unknown Rx ED Physical Exam - General Limitations: No Limitations General appearance: alert, in no apparent distress - Head Head exam: Present: atraumatic, normocephalic, normal inspection - Eye Eye exam: Present: normal appearance, PERRL, EOMI Pupils: Present: normal accommodation - ENT ENT exam: Present: normal exam, normal orophraynx, mucous membranes moist, TM's normal bilaterally, normal external ear exam - Neck Neck exam: Present: normal inspection, full ROM - Respiratory Respiratory exam: Present: normal lung sounds bilaterally. Absent: respiratory distress, wheezes, rales, rhonchi, chest wall tenderness, accessory muscle use, decreased breath sounds - Cardiovascular Cardiovascular Exam: Present: regular rate, normal rhythm, normal heart sounds. Absent: systolic murmur, diastolic murmur, rubs, gallop - GI/Abdominal GI/Abdominal exam: Present: soft, normal bowel sounds. Absent: tenderness, guarding, rigid, hyperactive bowel sounds, hypoactive bowel sounds, organomegaly - Extremities Exam Extremities exam: Present: normal inspection, full ROM, normal capillary refill. Absent: tenderness, pedal edema, joint swelling, calf tenderness - Back Exam Back exam: Present: normal inspection, full ROM, tenderness (Palpable lumbosacral paraspinal musculoskeletal tenderness), muscle spasm, paraspinal tenderness. Absent: CVA tenderness (L), vertebral tenderness - Neurological Exam Neurological exam: Present: alert, oriented X3, CN II-XII intact, normal gait, reflexes normal - Psychiatric Psychiatric exam: Present: normal affect, normal mood - Skin Skin exam: Present: warm, dry, intact, normal color. Absent: rash ED Course Vital Signs 08/01/21 08/01/21 03:44 03:49 Temperature 98.5 F Pulse Rate 75 78 Respiratory 14 18 Rate Blood Pressure 173/99 Blood Pressure 173/99 [Left] O2 Sat by Pulse 97 98 Oximetry ED Medical Decision Making - Medical Decision Making This is a 56-year-old -[place] male with a history of hypertension, tqa-hbfcxan-bwihnusqn diabetes and chronic low back pain due to herniated lumbar disc disease who presents to the ED with complaint of acute exacerbation of his chronic low back pain after twisting and bending at work about 1 hour ago. Patient states that the pain is constant, persistent and worse with ambulation or any movement. Patient states that he is unable perform any active range of motion like twisting or bending because of worsening pain. In the ED, patient is alert and oriented x3 and is not in any distress. Patient was treated for pain in the ED and on reevaluation, patient's pain is well controlled medication. Patient will discharge home on pain medications and muscle relaxants and advised to follow-up with his primary care physician in 5 to 7 days for reevaluation or return to the ED immediately if symptoms get worse. - Differential Diagnosis Muscle spasm; Muscle strain; chronic low back pain Critical care attestation.: If time is entered above; I have spent that time in minutes in the direct care of this critically ill patient, excluding procedure time. ED Disposition Clinical Impression: Spasm of muscle of lower back, Strain of muscle, fascia and tendon of lower back, initial encounter Chronic low back pain with bilateral sciatica Qualifiers: Back pain laterality: bilateral Qualified Code(s): M54.42 - Lumbago with sciatica, left side; M54.41 - Lumbago with sciatica, right side; G89.29 - Other chronic pain Disposition: HOME / SELF CARE / HOMELESS Is pt being admited?: No Does the pt Need Aspirin: No Condition: Stable Instructions: Muscle Cramps and Spasms, [id number], Back Injury Prevention, [id number], Chronic Back Pain, Uquz-rp-Iubr, Muscle Strain, Idng-ib-Vrdx Additional Instructions: Take medication with food, drink plenty of fluids and follow-up with your primary care physician in 5 to 7 days for reevaluation. Return to the ED immediately if symptoms get worse Prescriptions: Naproxen [EC-Naprosyn] 500 mg PO Q12H PRN #30 tablet. PRN Reason: pain Metaxalone [Skelaxin] 800 mg PO Q8H PRN #30 tablet PRN Reason: spasm in Back traMADoL [Ultram 50 MG tab] 50 mg PO Q6HR PRN #12 tablet PRN Reason: Pain Referrals: ELLEN SOLIS MD [Staff Physician] - 3-5 Days Forms: Work/School Release Form(ED) Time of Disposition: 04:13 Print Language: KAZAKH
== END 2021-08-01 05:50 | disposition home or self-care (01) ==
LOC: ED 03:34
DX: S39.012A Strain of muscle, fascia and tendon of lower back, initial encounter (principal); M54.42 Lumbago with sciatica, left side; M54.41 Lumbago with sciatica, right side; M62.830 Muscle spasm of back; I10 Essential (primary) hypertension; E11.9 Type 2 diabetes mellitus without complications; Z79.899 Other long term (current) drug therapy; X50.1XXA Overexertion from prolonged static or awkward postures, initial encounter; Y93.89 Activity, other specified; Y92.89 Other specified places as the place of occurrence of the external cause; Y99.8 Other external cause status
CPT/HCPCS: 96372; 99282; J1885

== ENCOUNTER 2021-11-06 06:09 | Outpatient (CLI) | payer BC ==
[2021-11-06 06:37] LABS: Hematocrit 40.9 % (35.5-45.6); Mean Corpuscular HGB Conc 32 % (32-34); Mean Corpuscular Volume 78 fl (84-94); Platelet Count 201 K/mm3 (140-440); Red Blood Count 5.21 M/mm3 (3.65-5.03)
[2021-11-06 07:08] LABS: Alanine Aminotransferase 12 units/L (7-56); Albumin 4.5 g/dL (3.9-5); BUN/Creatinine Ratio 12; Blood Urea Nitrogen 15 mg/dL (9-20); Calcium 9.3 mg/dL (8.4-10.2); Chol/HDL Ratio 2.88 %; HDL Cholesterol 60 mg/dL (40-59); Hemolysis Index 2; LDL Cholesterol,Direct 108 mg/dL (50-130)
== END 2021-11-06 06:10 | disposition home or self-care (01) ==
LOC: LAB 06:09
PROVIDERS: ATTEND Internal Medicine
DX: Z00.00 Encounter for general adult medical examination without abnormal findings (principal); I10 Essential (primary) hypertension; R78.2 Finding of cocaine in blood; R53.83 Other fatigue; E11.65 Type 2 diabetes mellitus with hyperglycemia; E78.2 Mixed hyperlipidemia
CPT/HCPCS: 36415; 80053; 80061; 83036; 84153; 84443; 85027

== ENCOUNTER 2021-11-24 23:55 | Emergency (ER) | payer BC ==
[2021-11-25 00:04] VITALS: BP 179/98
[2021-11-25] MEDS ORDERED: KETOROLAC 30 MG/1 ML INJ IM ONE (01:40)
[2021-11-25] MEDS ORDERED: DEXAMETHASONE 4 MG TAB PO ONE (01:40)
--- NOTE | 2021-11-25 02:22 | Emergency Department Report ---
ED Back Pain/Injury HPI - General Chief Complaint: Back Pain/Injury Stated Complaint: NUMBNESS/PAIN Source: patient Limitations: No Limitations - History of Present Illness Initial Comments: 56-year-old male presents to the ED complaining of low back pain radiating to the right leg. Patient states that he have a history of sciatica. Patient is ambulatory. Denies any history of trauma. Patient is alert and oriented x4. MD Complaint: back pain Onset/Timin -: days(s) Similar Symptoms Previously: Yes Place: home Radiation: right leg Severity: moderate Severity scale (0 -10): 8 Quality: aching Consistency: intermittent Improves With: none Worsens With: none Associated Symptoms: denies other symptoms - Related Data Previous Rx's Medication Instructions Recorded Last Taken Type predniSONE [Deltasone] 50 mg PO QDAY 3 Days #3 tab 03/01/18 Unknown Rx Albuterol Mdi (or & Nicu Only) 1 - 2 puff IH Q6H PRN #1 inh 10/29/19 Unknown Rx [ProAir HFA Inhaler] Amoxicillin/Potassium Clav 1 each PO Q12H #20 tablet 10/29/19 Unknown Rx [Augmentin 875-125 Tablet] Benzonatate [Tessalon Perles] 100 mg PO Q8HR #30 capsule 10/29/19 Unknown Rx Ibuprofen [Motrin] 800 mg PO Q8HR PRN #24 tablet 10/29/19 Unknown Rx methylPREDNISolone [Medrol 4MG 4 mg PO DAILY #21 tab.ds.pk 10/29/19 Unknown Rx DOSEPAK (21 tabs)] Albuterol Sulfate [Proventil Hfa] 6.7 gm IH TID PRN #1 hfa.aer.ad 01/28/20 Unknown Rx Azithromycin [Zithromax TAB] 250 mg PO QDAY 5 Days #6 tablet 01/28/20 Unknown Rx Benzonatate [Tessalon Perles] 100 mg PO Q8HR PRN #14 capsule 01/28/20 Unknown Rx Cyclobenzaprine [Flexeril] 10 mg PO Q8HR PRN #14 tablet 01/28/20 Unknown Rx Diclofenac Potassium 50 mg PO Q8H PRN #30 tablet 07/04/20 Unknown Rx amLODIPine 5 mg PO DAILY 30 Days #30 tablet 10/02/20 Unknown Rx Metaxalone [Skelaxin] 800 mg PO Q8H PRN #30 tablet 08/01/21 Unknown Rx Naproxen [EC-Naprosyn] 500 mg PO Q12H PRN #30 tablet. 08/01/21 Unknown Rx traMADoL [Ultram 50 MG tab] 50 mg PO Q6HR PRN #12 tablet 08/01/21 Unknown Rx Allergies Allergy/AdvReac Type Severity Reaction Status Date / Time No Known Allergies Allergy Verified 11/25/21 00:04 ED Review of Systems ROS: Stated complaint: NUMBNESS/PAIN Other details as noted in HPI Constitutional: denies: chills, fever Eyes: denies: eye pain, eye discharge, vision change ENT: denies: ear pain, throat pain Respiratory: denies: cough, shortness of breath, wheezing Cardiovascular: denies: chest pain, palpitations Endocrine: no symptoms reported Gastrointestinal: denies: abdominal pain, nausea, diarrhea Genitourinary: denies: urgency, dysuria Musculoskeletal: denies: back pain, joint swelling, arthralgia Skin: other (Back pain). denies: rash, lesions Neurological: denies: headache, weakness, paresthesias Psychiatric: denies: anxiety, depression Hematological/Lymphatic: denies: easy bleeding, easy bruising ED Past Medical Hx - Past Medical History Hx Hypertension: Yes Hx Diabetes: Yes Additional medical history: sciatic. Herniated disc and chronic back pain - Surgical History Additional Surgical History: left shoulder. left knee - Social History Smoking Status: Never Smoker - Medications Home Medications: Home Medications Medication Instructions Recorded Confirmed Last Taken Type predniSONE [Deltasone] 50 mg PO QDAY 3 Days #3 tab 03/01/18 Unknown Rx Albuterol Mdi (or & Nicu Only) 1 - 2 puff IH Q6H PRN #1 inh 10/29/19 Unknown Rx [ProAir HFA Inhaler] Amoxicillin/Potassium Clav 1 each PO Q12H #20 tablet 10/29/19 Unknown Rx [Augmentin 875-125 Tablet] Benzonatate [Tessalon Perles] 100 mg PO Q8HR #30 capsule 10/29/19 Unknown Rx Ibuprofen [Motrin] 800 mg PO Q8HR PRN #24 tablet 10/29/19 Unknown Rx methylPREDNISolone [Medrol 4MG 4 mg PO DAILY #21 tab.ds.pk 10/29/19 Unknown Rx DOSEPAK (21 tabs)] Albuterol Sulfate [Proventil Hfa] 6.7 gm IH TID PRN #1 hfa.aer.ad 01/28/20 Unknown Rx Azithromycin [Zithromax TAB] 250 mg PO QDAY 5 Days #6 tablet 01/28/20 Unknown Rx Benzonatate [Tessalon Perles] 100 mg PO Q8HR PRN #14 capsule 01/28/20 Unknown Rx Cyclobenzaprine [Flexeril] 10 mg PO Q8HR PRN #14 tablet 01/28/20 Unknown Rx Diclofenac Potassium 50 mg PO Q8H PRN #30 tablet 07/04/20 Unknown Rx amLODIPine 5 mg PO DAILY 30 Days #30 tablet 10/02/20 Unknown Rx Metaxalone [Skelaxin] 800 mg PO Q8H PRN #30 tablet 08/01/21 Unknown Rx Naproxen [EC-Naprosyn] 500 mg PO Q12H PRN #30 tablet.dr 08/01/21 Unknown Rx traMADoL [Ultram 50 MG tab] 50 mg PO Q6HR PRN #12 tablet 08/01/21 Unknown Rx ED Physical Exam - General Limitations: No Limitations General appearance: alert, in no apparent distress - Head Head exam: Present: atraumatic, normocephalic - Eye Eye exam: Present: normal appearance - ENT ENT exam: Present: mucous membranes moist - Neck Neck exam: Present: normal inspection - Respiratory Respiratory exam: Present: normal lung sounds bilaterally. Absent: respiratory distress - Cardiovascular Cardiovascular Exam: Present: regular rate, normal rhythm. Absent: systolic murmur, diastolic murmur, rubs, gallop - GI/Abdominal GI/Abdominal exam: Present: soft, normal bowel sounds - Rectal Rectal exam: Present: deferred - Extremities Exam Extremities exam: Present: normal inspection - Back Exam Back exam: Present: normal inspection, muscle spasm. Absent: full ROM, tenderness, CVA tenderness (L) - Neurological Exam Neurological exam: Present: alert, oriented X3 - Psychiatric Psychiatric exam: Present: normal affect, normal mood - Skin Skin exam: Present: warm, dry, intact, normal color. Absent: rash ED Course Vital Signs 11/25/21 11/25/21 00:00 01:54 Temperature 98.8 F Pulse Rate 75 Respiratory 18 18 Rate Blood Pressure 179/98 O2 Sat by Pulse 98 Oximetry ED Medical Decision Making - Medical Decision Making 56-year-old male presents to the ED complaining of low back pain radiating to the right leg. Patient states that he have a history of sciatica. Patient is ambulatory. Denies any history of trauma. The patient presented with acute back pain. The patient is now resting comfortably and feels better is alert talkative interactive in no acute distress. The repeat examination is unremarkable and benign . The patient is neurologically intact and ambulatory in the ED the patient has no fever no bowel or bladder incontinence no saddle elevations and is otherwise alert and well-appearing. The history and physical exam examination and diagnostic do not suggest presence of acute spinal epidural bleed, cauda equina syndrome, abdominal aortic aneurysm, dissection or other process requiring further testing, treatment or consultation in emergency department. Vital signs stable. The patient condition is stable and appropriate for discharge. Patient will pursue further outpatient evaluation with the primary care physician or other physician has indicated in the discharge instruction. Critical care attestation.: If time is entered above; I have spent that time in minutes in the direct care of this critically ill patient, excluding procedure time. ED Disposition Clinical Impression: Back pain Qualifiers: Back pain location: low back pain Chronicity: acute Back pain laterality: bilateral Sciatica presence: with sciatica Sciatica laterality: sciatica of right side Qualified Code(s): M54.41 - Lumbago with sciatica, right side Disposition: 01 HOME / SELF CARE / HOMELESS Is pt being admited?: No Does the pt Need Aspirin: No Condition: Stable Instructions: Acute Back Pain, Adult Additional Instructions: May take [id number] Tylenol for pain May use echx-zit-[id number] lidocaine patches for pain Follow-up with primary care doctor as needed Referrals: AILYN MARTINEZ MD [Staff Physician] - 3-5 Days Time of Disposition: 02:22
--- NOTE | 2021-11-26 10:14 | Electrocardiograph Report ---
[facility] Test Date: 2021-11-25 Test Time: 00:06:44 Pat Name: LUCIO LOMBARDI Department: Room: Gender: M [employer] Inspector: CHANTEL : 1965 Requested By: ROSANNE OCONNELL Order Number: [id number] Reading MD: Nela Back Measurements Intervals [place] Rate: 74 P: 44 LA: 193 QRS: 15 QRSD: 101 T: 27 QT: 415 QTc: 459 Interpretive Statements Sinus rhythm No previous ECG available for comparison Electronically Signed On 11-26-2021 10:14:01 EST by Nela Back
== END 2021-11-25 03:01 | disposition home or self-care (01) ==
LOC: ED 23:55 → EEVIPCON 23:55 → ED 11-25 03:01
DX: M54.41 Lumbago with sciatica, right side (principal); I10 Essential (primary) hypertension; E11.9 Type 2 diabetes mellitus without complications; Z79.899 Other long term (current) drug therapy; Z98.890 Other specified postprocedural states
CPT/HCPCS: 93005; 93010; 96372; 99282; J1885; J8540

== ENCOUNTER 2022-03-16 11:47 | Outpatient (CLI) | payer BC ==
[2022-03-16 13:06] LABS: Hematocrit 42.8 % (35.5-45.6); Hemoglobin 13.7 gm/dl (11.8-15.2); Mean Corpuscular HGB Conc 32 % (32-34); Mean Corpuscular Volume 82 fl (84-94); Platelet Count 241 K/mm3 (140-440); Red Blood Count 5.23 M/mm3 (3.65-5.03); Red Cell Distribution Width 16.3 % (13.2-15.2)
[2022-03-16 15:45] LABS: BUN/Creatinine Ratio 13; Blood Urea Nitrogen 14 mg/dL (9-20)
[2022-03-16 15:46] LABS: Alanine Aminotransferase 10 units/L (7-56); Albumin 4.7 g/dL (3.9-5); Calcium 9.2 mg/dL (8.4-10.2); Chol/HDL Ratio 3.57 %; HDL Cholesterol 54 mg/dL (40-59); LDL Cholesterol,Direct 116 mg/dL (50-130)
[2022-03-16 15:49] LABS: Hemolysis Index 2
== END 2022-03-16 11:48 | disposition home or self-care (01) ==
LOC: LAB 11:47
PROVIDERS: ATTEND Internal Medicine
DX: E11.65 Type 2 diabetes mellitus with hyperglycemia (principal); E78.2 Mixed hyperlipidemia; I10 Essential (primary) hypertension; N40.0 Benign prostatic hyperplasia without lower urinary tract symptoms
CPT/HCPCS: 36415; 80053; 80061; 83036; 84153; 85027